=== PATIENT | male | born 1955 | race Caucasian/White ===

== ENCOUNTER → 2024-03-01 10:58 | Outpatient (BNVA) | payer MEDICARE, SELFPAY | PROVIDERS: PCP Nurse Practitioner Family; Visit Provider Podiatrist Foot & Ankle Surgery | DX: M25.371 Other instability, right ankle (principal); M77.41 Metatarsalgia, right foot; M77.42 Metatarsalgia, left foot | CPT/HCPCS: 99203 ==

== ENCOUNTER 2024-05-28 15:30 | Outpatient (CLI) | payer MEDICARE, SELFPAY | END 2024-05-28 15:31 | disposition home or self-care (01) | LOC: SPT 15:31 | PROVIDERS: PCP Nurse Practitioner Family; Visit Provider Podiatrist Foot & Ankle Surgery | DX: Z46.89 Encounter for fitting and adjustment of other specified devices (principal); M25.371 Other instability, right ankle | CPT/HCPCS: L3030 ==

== ENCOUNTER → 2025-02-04 13:57 | Outpatient (BNVA) | payer MEDICARE, SELFPAY | PROVIDERS: PCP Nurse Practitioner Family; Visit Provider Nurse Practitioner Family | DX: D17.1 Benign lipomatous neoplasm of skin and subcutaneous tissue of trunk (principal); L57.8 Other skin changes due to chronic exposure to nonionizing radiation; L81.4 Other melanin hyperpigmentation; D22.5 Melanocytic nevi of trunk; L82.1 Other seborrheic keratosis; Z12.83 Encounter for screening for malignant neoplasm of skin | CPT/HCPCS: 99203 ==